=== PATIENT | female | born 1995 | race Asian ===

== ENCOUNTER 2023-10-27 06:05 | Day surgery (SDC) | payer OTHER, SELFPAY ==
[2023-10-27] VITALS (7 sets, daily range): BP systolic 96–111; BP diastolic 51–68; BMI 22.5
[2023-10-27] MEDS: NORMOSOL-R 1000 IV (06:40)
[2023-10-27] MEDS: TYLENOL 1000 MG PO (06:41)
== END 2023-10-27 10:20 | disposition home or self-care (01) ==
LOC: SDS 06:05
PROVIDERS: ATTENDING PHYSICIAN Surgery
DX: K40.90 Unilateral inguinal hernia, without obstruction or gangrene, not specified as recurrent (principal)
CPT/HCPCS: 49650; C1781